=== PATIENT | female | born 1995 | race American Indian/Alaskan Native ===

== ENCOUNTER 2019-02-15 12:31 | Emergency (ER) | payer MEDICAID, OTHER ==
[2019-02-15] MEDS ORDERED: NACL 0.9% 1000 ML 1,000 ML IV ONE (12:36)
[2019-02-15 13:07] LABS: Basophils % (Auto) 0.4 % (0.0-1.8); Eosinophils # (Auto) 0.2 K/mm3 (0.0-0.4); Eosinophils % (Auto) 2.4 % (0.0-4.3); Hematocrit 39.3 % (30.3-42.9); Hemoglobin 12.4 gm/dl (10.1-14.3); Lymphocytes # (Auto) 2.4 K/mm3 (1.2-5.4); Lymphocytes % (Auto) 29.2 % (13.4-35.0); Mean Corpuscular HGB Conc 32 % (30-34); Mean Corpuscular Volume 81 fl (79-97); Monocytes # (Auto) 0.9 K/mm3 (0.0-0.8); Monocytes % (Auto) 10.5 % (0.0-7.3); Platelet Count 279 K/mm3 (140-440); Red Blood Count 4.84 M/mm3 (3.65-5.03); Red Cell Distribution Width 13.2 % (13.2-15.2)
[2019-02-15 13:14] LABS: Bilirubin,Urine NEG (Negative); Blood,Urine NEG (Negative); Color,Urine Yellow (Yellow); Mucus,Urine FEW /HPF; Protein,Urine <15 mg/dL mg/dL (Negative); Urobilinogen,Urine < 2.0 mg/dL (<2.0)
[2019-02-15 13:27] LABS: Alanine Aminotransferase 17 units/L (7-56); Albumin 4.3 g/dL (3.9-5); BUN/Creatinine Ratio 11; Blood Urea Nitrogen 8 mg/dL (7-17); Calcium 9.5 mg/dL (8.4-10.2); Hemolysis Index 41
[2019-02-15] MEDS ORDERED: REGLAN IV ONE (13:38)
[2019-02-15] MEDS ORDERED: PEPCID IV ONE (13:38)
--- NOTE | 2019-02-15 15:57 | Emergency Department Report ---
ED Abdominal Pain HPI - General Chief Complaint: Abdominal Pain Stated Complaint: ABD PAIN Time Seen by Provider: 02/15/19 13:38 Source: patient Mode of arrival: Ambulatory Limitations: No Limitations - History of Present Illness Initial Comments: Patient is a 23-year-old Female who is complaining of 2-3 days of lower abdominal pain. Patient states it's a crampy sensation is intact in severity. Patient also has had some vomiting but denies any diarrhea. Patient says she vomits T times a day. Patient is generally able to keep by mouth intake down. Patient states she is late with her menses. She denies any cough, congestion or fevers or chills. Severity scale (0 -10): 10 - Related Data Previous Rx's Medication Instructions Recorded Last Taken Type Ondansetron [Zofran Odt] 4 mg PO Q8HR #10 tab.rapdis 02/15/19 Unknown Rx Prenat Vit 17/Iron/Folic/Om3,6 1 each PO DAILY #30 capsule 02/15/19 Unknown Rx [Elite-Ob 400 Capsule] Allergies Allergy/AdvReac Type Severity Reaction Status Date / Time No Known Allergies Allergy Verified 02/15/19 13:44 ED Review of Systems ROS: Stated complaint: ABD PAIN Other details as noted in HPI Comment: All other systems reviewed and negative ED Past Medical Hx - Past Medical History Previous Medical History?: No - Surgical History Past Surgical History?: Yes Additional Surgical History: C section - Social History Smoking Status: Never Smoker Substance Use Type: None - Medications Home Medications: Home Medications Medication Instructions Recorded Confirmed Last Taken Type Ondansetron [Zofran Odt] 4 mg PO Q8HR #10 tab.rapdis 02/15/19 Unknown Rx Prenat Vit 17/Iron/Folic/Om3,6 1 each PO DAILY #30 capsule 02/15/19 Unknown Rx [Elite-Ob 400 Capsule] ED Physical Exam - General Limitations: No Limitations General appearance: alert, in no apparent distress - Head Head exam: Present: atraumatic, normocephalic - Eye Eye exam: Present: normal appearance - ENT ENT exam: Present: mucous membranes moist - Neck Neck exam: Present: normal inspection - Respiratory Respiratory exam: Present: normal lung sounds bilaterally. Absent: respiratory distress, wheezes, rales, rhonchi - Cardiovascular Cardiovascular Exam: Present: regular rate, normal rhythm, normal heart sounds. Absent: systolic murmur, diastolic murmur, rubs, gallop - GI/Abdominal GI/Abdominal exam: Present: soft, tenderness (mild suprapubic tenderness), normal bowel sounds. Absent: distended, guarding, rebound, rigid - Extremities Exam Extremities exam: Present: normal inspection - Back Exam Back exam: Present: normal inspection - Neurological Exam Neurological exam: Present: alert, oriented X3 - Psychiatric Psychiatric exam: Present: normal affect, normal mood - Skin Skin exam: Present: warm, dry, intact, normal color. Absent: rash ED Course Vital Signs 02/15/19 02/15/19 12:35 14:00 Temperature 98.2 F 98.2 F Pulse Rate 74 70 Respiratory 16 15 Rate Blood Pressure 112/69 Blood Pressure 117/70 [Left] O2 Sat by Pulse 100 100 Oximetry ED Medical Decision Making - Lab Data Result diagrams: 02/15/19 12:47 02/15/19 12:47 Lab Results 02/15/19 02/15/19 02/15/19 Range/Units 12:47 12:47 12:47 WBC 8.1 (4.5-11.0) K/mm3 RBC 4.84 (3.65-5.03) M/mm3 Hgb 12.4 (10.1-14.3) gm/dl Hct 39.3 (30.3-42.9) % MCV 81 (79-97) fl MCH 26 L (28-32) pg MCHC 32 (30-34) % RDW 13.2 (13.2-15.2) % Plt Count 279 (140-440) K/mm3 Lymph % (Auto) 29.2 (13.4-35.0) % [place] % (Auto) 10.5 H (0.0-7.3) % Eos % (Auto) 2.4 (0.0-4.3) % Baso % (Auto) 0.4 (0.0-1.8) % Lymph # 2.4 (1.2-5.4) K/mm3 [place] # 0.9 H (0.0-0.8) K/mm3 Eos # 0.2 (0.0-0.4) K/mm3 Baso # 0.0 (0.0-0.1) K/mm3 Seg Neutrophils % 57.5 (40.0-70.0) % Seg Neutrophils # 4.6 (1.8-7.7) K/mm3 Sodium 136 L (137-145) mmol/L Potassium 4.0 (3.6-5.0) mmol/L Chloride 99.8 (98-107) mmol/L Carbon Dioxide 26 (22-30) mmol/L Anion Gap 14 mmol/L BUN 8 (7-17) mg/dL Creatinine 0.7 (0.7-1.2) mg/dL Estimated GFR > 60 ml/min BUN/Creatinine Ratio 11 % Glucose 94 (65-100) mg/dL Calcium 9.5 (8.4-10.2) mg/dL Total Bilirubin 0.50 (0.1-1.2) mg/dL AST 16 (5-40) units/L ALT 17 (7-56) units/L Alkaline Phosphatase 48 (35-129) units/L Total Protein 6.9 (6.3-8.2) g/dL Albumin 4.3 (3.9-5) g/dL Albumin/Globulin Ratio 1.7 % Lipase 30 (13-60) units/L HCG, Qual Positive (Negative) HCG, Quant (0-4) mIU/mL Urine Color (Yellow) Urine Turbidity (Clear) Urine pH (5.0-7.0) Ur Specific [place] (1.003-1.030) Urine Protein (Negative) mg/dL Urine Glucose (UA) (Negative) mg/dL Urine Ketones (Negative) mg/dL Urine Blood (Negative) Urine Nitrite (Negative) Urine Bilirubin (Negative) Urine Urobilinogen (<2.0) mg/dL Ur Leukocyte Esterase (Negative) Urine WBC (Auto) (0.0-6.0) /HPF Urine RBC (Auto) (0.0-6.0) /HPF U Epithel Cells (Auto) (0-13.0) /HPF Urine Mucus /HPF 02/15/19 02/15/19 Range/Units 12:47 12:49 WBC (4.5-11.0) K/mm3 RBC (3.65-5.03) M/mm3 Hgb (10.1-14.3) gm/dl Hct (30.3-42.9) % MCV (79-97) fl MCH (28-32) pg MCHC (30-34) % RDW (13.2-15.2) % Plt Count (140-440) K/mm3 Lymph % (Auto) (13.4-35.0) % [place] % (Auto) (0.0-7.3) % Eos % (Auto) (0.0-4.3) % Baso % (Auto) (0.0-1.8) % Lymph # (1.2-5.4) K/mm3 [place] # (0.0-0.8) K/mm3 Eos # (0.0-0.4) K/mm3 Baso # (0.0-0.1) K/mm3 Seg Neutrophils % (40.0-70.0) % Seg Neutrophils # (1.8-7.7) K/mm3 Sodium (137-145) mmol/L Potassium (3.6-5.0) mmol/L Chloride (98-107) mmol/L Carbon Dioxide (22-30) mmol/L Anion Gap mmol/L BUN (7-17) mg/dL Creatinine (0.7-1.2) mg/dL Estimated GFR ml/min BUN/Creatinine Ratio % Glucose (65-100) mg/dL Calcium (8.4-10.2) mg/dL Total Bilirubin (0.1-1.2) mg/dL AST (5-40) units/L ALT (7-56) units/L Alkaline Phosphatase (35-129) units/L Total Protein (6.3-8.2) g/dL Albumin (3.9-5) g/dL Albumin/Globulin Ratio % Lipase (13-60) units/L HCG, Qual (Negative) HCG, Quant 96877 H (0-4) mIU/mL Urine Color Yellow (Yellow) Urine Turbidity Clear (Clear) Urine pH 7.0 (5.0-7.0) Ur Specific [place] 1.012 (1.003-1.030) Urine Protein <15 mg/dl (Negative) mg/dL Urine Glucose (UA) Neg (Negative) mg/dL Urine Ketones Neg (Negative) mg/dL Urine Blood Neg (Negative) Urine Nitrite Neg (Negative) Urine Bilirubin Neg (Negative) Urine Urobilinogen < 2.0 (<2.0) mg/dL Ur Leukocyte Esterase Neg (Negative) Urine WBC (Auto) 0.0 (0.0-6.0) /HPF Urine RBC (Auto) 2.0 (0.0-6.0) /HPF U Epithel Cells (Auto) < 1.0 (0-13.0) /HPF Urine Mucus Few /HPF - Radiology Data Radiology results: image reviewed (ultrasound transvaginal shows that the patient has a approximately 7 week viable IUP. No abnormalities seen at sign.) - Medical Decision Making Patient is 23-year-old Female who was diagnosed here with . Patient had ultrasound rule out ectopic and the patient does have a viable IUP present. The patient be discharged home with follow-up with PHONE OPERATOR. Critical care attestation.: If time is entered above; I have spent that time in minutes in the direct care of this critically ill patient, excluding procedure time. ED Disposition Clinical Impression: Abdominal pain affecting Nausea & vomiting Qualifiers: Vomiting type: unspecified Vomiting Intractability: non-intractable Qualified Code(s): R11.2 - Nausea with vomiting, unspecified Disposition: DC- TO HOME OR SELFCARE Is pt being admited?: No Does the pt Need Aspirin: No Condition: Stable Instructions: Morning Sickness (ED), (ED) Referrals: TERESA SHEPHERD MD [Staff Physician] - 3-5 Days Time of Disposition: 15:57
[2019-02-15 16:19] VITALS: BP 128/68
--- NOTE | 2019-02-15 16:22 | Ultrasound Report ---
PROCEDURE: US OB TRANSVAGINAL and OB ultrasound less than 14 weeks TECHNIQUE: Transabdominal and transvaginal grayscale, M-mode and color-flow imaging of the pelvis was performed. HISTORY: preg with abd pain date of last menstrual is not provided. Positive beta hCG. COMPARISONS: None FINDINGS: TRANSABDOMINAL: The uterus measures 9.1 cm x 5.5 cm x 6.1 cm. There is demonstration of an intrauterine gestational sac with yolk sac and pole. Estimated gestational age by measurement of crown-rump length is 7 weeks 1 day. heart rate is measured at 142 bpm. The left ovary measures 2.9 cm x 1.7 cm x 2.5 cm and is unremarkable in appearance. Flow is demonstra rufus in the left ovary utilizing color flow imaging. The right ovary is not visualized on the transabdominal study. TRANSVAGINAL: The uterus measures 9 cm x 5.7 cm x 7.9 cm. There is demonstration of an intrauterine gestational sac with yolk sac and pole. Estimated gestational age by measurement of crown-rump length is 6 weeks 6 days. heart rate is measured at 142 bpm. The right ovary measures 2.4 cm x 1.6 cm x 1.7 cm and is unremarkable in appearance. The left ovary measures 2.6 cm x 2.2 cm x 2 cm and is unremarkable in appearance. No free fluid is demonstrated in the pelvis. IMPRESSION: 1. Demonstration of a single living intrauterine gestation with estimated gestational age by measurem ent of crown-rump length of 6 weeks 6 days. heart rate is measured at 142 bpm. This document is electronically signed by More Shields MD., February 15 2019 04:20:02 PM ET
--- NOTE | 2019-02-15 16:22 | Ultrasound Report ---
PROCEDURE: US OB <= 14 WEEKS FETUS and transvaginal ultrasound, OB TECHNIQUE: Transabdominal and transvaginal grayscale, M-mode and color-flow imaging of the pelvis was performed. HISTORY: preg with abd pain date of last menstrual is not provided. Positive beta hCG. COMPARISONS: None FINDINGS: TRANSABDOMINAL: The uterus measures 9.1 cm x 5.5 cm x 6.1 cm. There is demonstration of an intrauterine gestational sac with yolk sac and pole. Estimated gestational age by measurement of crown-rump length is 7 weeks 1 day. heart rate is measured at 142 bpm. The left ovary measures 2.9 cm x 1.7 cm x 2.5 cm and is unremarkable in appearance. Flow is demonstra rufus in the left ovary utilizing color flow imaging. The right ovary is not visualized on the transabdominal study. TRANSVAGINAL: The uterus measures 9 cm x 5.7 cm x 7.9 cm. There is demonstration of an intrauterine gestational sac with yolk sac and pole. Estimated gestational age by measurement of crown-rump length is 6 weeks 6 days. heart rate is measured at 142 bpm. The right ovary measures 2.4 cm x 1.6 cm x 1.7 cm and is unremarkable in appearance. The left ovary measures 2.6 cm x 2.2 cm x 2 cm and is unremarkable in appearance. No free fluid is demonstrated in the pelvis. IMPRESSION: 1. Demonstration of a single living intrauterine gestation with estimated gestational age by measurem ent of crown-rump length of 6 weeks 6 days. heart rate is measured at 142 bpm. This document is electronically signed by More Shields MD., February 15 2019 04:20:43 PM ET
== END 2019-02-15 16:17 | disposition home or self-care (01) ==
LOC: ED 12:31
DX: O26.891 Other specified pregnancy related conditions, first trimester (principal); R10.30 Lower abdominal pain, unspecified; O21.9 Vomiting of pregnancy, unspecified; Z3A.01 Less than 8 weeks gestation of pregnancy
CPT/HCPCS: 36415; 76801; 76817; 80053; 81001; 83690; 84702; 84703; 85025; 96361; 96374; 96375; 99284; J2765; J7030

== ENCOUNTER 2019-02-24 19:54 | Emergency (ER) | payer SELFPAY | END 2019-02-24 21:06 | disposition left against medical advice (07) | LOC: ED 19:54 | DX: N93.9 Abnormal uterine and vaginal bleeding, unspecified (principal); Z53.21 Procedure and treatment not carried out due to patient leaving prior to being seen by health care provider ==